=== PATIENT | female | born 1950 | race African-American/Black ===

== ENCOUNTER → 2017-03-15 | Outpatient (CLI) | payer MEDICARE, OTHER ==
--- NOTE | ~2017-03-15 | US5 ---
[facility] A Service of [facility] & [facility] RADIOLOGY TEXT RESULTS PATIENT: MARELY HDEZ LOCATION: [facility] : 48 UNIT #: [id number] AGE: [address]: JACINTA MCLAUGHLIN APRN SEX: F ORDER DR: [id number] [facility] [address]. [place], [place] [address] [id number] O MR#: [id number] #: [id number] NAME: MRAELY HDEZ : 1950 SEX: F STUDY DATE/TIME: 03/15/2017 10:28 UNIT: [facility] ROOM: STUDY DESCRIPTION: US Abdominal Complete Attending Physician: Jacinta Mclaughlin Aprn Ordering Physician: Jacinta Mclaughlin Aprn Primary Care Physician: Jacinta Mclaughlin Aprn MEDICAL IMAGING REPORT This report is preliminary unless electronic signature is present EXAM Abdominal ultrasound complete 03/15/2017 HISTORY Generalized abdominal pain and distension for 2 years with weight gain. Abnormally elevated liver enzymes on 03/03/2017. FINDINGS The liver is homogeneous in echotexture and demonstrates no cystic or solid mass lesions. The intrahepatic bile ducts are not dilated. The common duct is dilated to 8 mm. There is an echogenic focus within the common bile duct. I cannot exclude choledocholithiasis. Consider correlation with MRCP. The gallbladder is normal with no evidence of cholelithiasis, wall thickening or pericholecystic fluid. The pancreatic head and body are normal. The pancreatic tail is obscured by bowel gas. The spleen measures 8.2 cm in greatest diameter. The visualized portions of the abdominal aorta and inferior vena cava are within normal limits. The kidneys are normal bilaterally. IMPRESSION 1. Question is raised of a small echogenic focus within the common bile duct. There is no intrahepatic biliary ductal dilatation, but there is mild dilatation of the common bile duct. I cannot exclude the possibility of choledocholithiasis on the basis of this examination. Clinical correlation is recommended. Consider correlation with MRCP. 2. Normal gallbladder. 3. The pancreatic head and body are normal. The pancreatic tail is obscured by bowel gas. STAT * RESULT [facility] A Service of [facility] & [facility] RADIOLOGY TEXT RESULTS PATIENT: MARELY HDEZ LOCATION: [facility] : [birth year] UNIT #: [id number] AGE: [address]: JACINTA MCLAUGHLIN APRN SEX: F ORDER DR: Dictated by... Osmany Marino M.D. THIS IS AN ELECTRONICALLY VERIFIED REPORT Osmany Marino M.D. at 03/16/2017 8:28 AM EMA/karen TD: 03/15/2017 13:38 JOB #: [id number] MEDICAL IMAGING REPORT Page 1 of 1 COPY
--- NOTE | ~2017-03-15 | US98 ---
[facility] A Service of [facility] RADIOLOGY TEXT RESULTS PATIENT: MARELY HDEZ LOCATION: [facility] : 48 UNIT #: [id number] AGE: [address]: JACINTA MCLAUGHLIN APRN SEX: F ORDER DR: [id number] [facility] [address] [place], [place] [address] [id number] O MR#: [id number] Acc #: [id number] NAME: MARELY HDEZ : 1950 SEX: F STUDY DATE/TIME: 03/15/2017 11:17 UNIT: [facility] ROOM: STUDY DESCRIPTION: US Pelvic Non-OB Complete Attending Physician: Jacinta Mclaughlin Aprn Ordering Physician: Jacinta Mclaughlin Aprn Primary Care Physician: Jacinta Mclaughlin Aprn MEDICAL IMAGING REPORT This report is preliminary unless electronic signature is present EXAM Pelvic ultrasound COMPARISON None INDICATIONS 66-year-old female with pelvic distension and weight gain for a couple years. History of hysterectomy and bilateral salpingo-oophorectomy in 1978. FINDINGS Urinary bladder is unremarkable. No adnexal masses are seen. The patient is post hysterectomy and oophorectomy. Shadowing from bowel gas is noted in the pelvis. There is no free pelvic fluid seen on this exam. IMPRESSION Normal sonographic evaluation of the bladder. The patient is post salpingo-oophorectomy bilaterally, as well as hysterectomy. No adnexal masses or free fluid in the pelvis. Dictated by... Marv Anderson M.D. THIS IS AN ELECTRONICALLY VERIFIED REPORT Marv Anderson M.D. at 03/17/2017 4:05 PM PAULINE/karen TD: 03/15/2017 17:02 JOB #: [id number] MEDICAL IMAGING REPORT [facility] A Service of [facility] RADIOLOGY TEXT RESULTS PATIENT: MARELY HDEZ LOCATION: [facility] : 48 UNIT #: [id number] AGE: [address]: JACINTA MCLAUGHLIN APRN SEX: F ORDER DR: Page 1 of 1 COPY
== END | disposition home or self-care (01) ==
LOC: CWCC 10:11
DX: R14.0 Abdominal distension (gaseous) (principal); R74.8 Abnormal levels of other serum enzymes; Z90.710 Acquired absence of both cervix and uterus; Z90.722 Acquired absence of ovaries, bilateral; K83.8 Other specified diseases of biliary tract
CPT/HCPCS: 76700; 76856

== ENCOUNTER → 2017-06-05 | Outpatient (CLI) | payer MEDICARE, OTHER ==
[2017-06-05 17:35] LABS: BASOPHIL# 0.1 X10e3 (0-0.3); BASOPHIL% 0.8 % (0-2.5); EOSINOPHIL# 0.1 X10e3 (0-0.7); EOSINOPHIL% 0.7 % (0.0-7.0); HEMATOCRIT 38.2 % (35.0-45.0); HEMOGLOBIN 12.5 gm/dL (12.0-16.0); LYMPHOCYTE% 25.7 % (17.0-45.0); MEAN CELL VOLUME 94.7 FL (83-96); MEAN CORPUSCULAR HEMOGLOBIN 30.9 PG (28-34); MEAN CORPUSCULAR HGB CONC 32.6 g/dL (30-36); MEAN PLATELET VOLUME 8.3 FL (6.5-11.5); MONOCYTE# 1.2 X10e3 (0-1.0); MONOCYTE% 10.1 % (3.0-12.0); NEUTROPHIL# 7.3 X10e3 (1.5-7.1); NEUTROPHIL% 62.7 % (40-75); PLATELET COUNT 275 X10e3 (140-420); RED BLOOD COUNT 4.03 X10e (3.90-5.30); RED CELL DISTRIBUTION WIDTH 13.8 % (11.0-15.5); WHITE BLOOD COUNT 11.7 X10e3 (4.0-10.5)
[2017-06-05 17:38] LABS: DIFF IND NO
[2017-06-05 17:58] LABS: BUN/CREATININE RATIO 12.5; CALCIUM SERUM 9.5 mg/dL (8.4-10.2); CREATININE SERUM 1.6 mg/dL (0.6-1.4); GLOM FILT RATE Estimated 38.3 mL/min (>60); POTASSIUM 3.8 mmol/L (3.5-5.1)
== END | disposition home or self-care (01) ==
LOC: CWCC 05-22 13:45 → CLAB 17:19
PROVIDERS: Internal Medicine Nephrology
DX: N18.3 Chronic kidney disease, stage 3 (moderate) (principal); E55.9 Vitamin D deficiency, unspecified
CPT/HCPCS: 36415; 80048; 82306; 82652; 85025